=== PATIENT | female | born 1980 | race Asian ===

== ENCOUNTER 2022-01-14 08:34 | Emergency (ER) | payer OTHER, SELFPAY ==
--- NOTE | 2022-01-14 08:41 | ED.SKABFB ---
HPI - Skin/Abscess/Foreign Bdy General Chief complaint: Allergic Reaction Stated complaint: hives all over Time Seen by Provider: 01/14/22 08:41 Source: patient and RN notes reviewed History of Present Illness HPI narrative: Patient is a 41-year-old female who presents the urgent care with complaints of itchy red hives all over the body. Patient states that she broke out about 28 hours ago while she was at work. 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 Patient denies any new medications or products at work. Denies of any change in lotions, creams or detergents. Denies of any new foods. Patient states that when she ate yesterday was brought from home. No other acute complaints. Patient has been taking Berta, Zyrtec and Benadryl without much relief. No acute distress noted. Patient aware of the plan of care. Some parts of this dictation were generated by voice recognition software and may contain typographical and/or grammatical inaccuracies. Related Data Home Medications Medication Instructions Recorded Confirmed cetirizine 10 mg tablet (Zyrtec) 10 mg PO DAILY 03/28/21 01/14/22 Allergies Allergy/AdvReac Type Severity Reaction Status Date / Time No Known Allergies Allergy Mild Verified 01/14/22 08:54 Review of Systems Review of Systems: CONSTITUTIONAL: Denies fever, chills, or sweats. EYES: Denies visual changes, redness, or discharge. ENT: Denies rhinorrhea, congestion, sore throat, or otalgia. CARDIOVASCULAR: Denies chest pain, palpitations, or edema. RESPIRATORY: Denies cough or dyspnea. GASTROINTESTINAL: Denies abdominal pain, nausea, vomiting, or diarrhea. GENITOURINARY: Denies dysuria or hematuria. SKIN: Reports of diffuse itchy hives MUSCULOSKELETAL: Denies back pain, joint pain, or myalgia. NEUROLOGIC: Denies headache, numbness, or weakness. All other systems reviewed are negative, except as documented in HPI. [facility] Family History Family History (Updated 03/28/21 @ 11:38 by Ginette Treviño CMA) Father Hypertension Grandparent Cancer Social History Social History (Updated 03/28/21 @ 11:39 by Ginette Treviño CMA) Smoking status: Never smoker Second hand tobacco smoke exposure: No Alcohol intake: never Substance use type: does not use Gender identity (if verbalized by the patient): Female Spiritual care concerns: No Agree to blood products: Yes Comments At the time of my signature, I reviewed and agree with the nursing past medical, surgical, social, and family history. There is no relevant family history pertinent to the patient complaint. Exam Narrative: GENERAL: This is a well-nourished, well-developed patient, in no apparent distress. HEAD: normocephalic, atraumatic. EYES: PERRL. Sclera clear/white. Vision is grossly intact. EARS: External ears normal NOSE: External nose normal with no obvious nasal discharge, nares without redness, no rhinorrhea. THROAT: Mucous membranes moist, posterior pharynx clear. NECK: Neck supple, non-tender without lymphadenopathy CARDIOVASCULAR: Regular rate and rhythm without murmurs, gallops, or rubs. RESPIRATORY: Clear to auscultation. Breath sounds equal bilaterally. No wheezes, rales, or rhonchi. SKIN: Diffuse raised, blanching erythemic urticaria to trunk, bilateral upper and lower extremities NEURO: awake, alert, and oriented to person, place and time. There were no obvious focal neurologic abnormalities. EXTREMITIES: No clubbing, cyanosis, or edema. Course Course Level of Care: Express Care Visit Vital Signs Vital signs: Vital Signs Temperature 99.8 F H 01/14/22 08:46 Pulse Rate 88 01/14/22 08:46 Respiratory Rate 16 01/14/22 08:46 Blood Pressure 125/82 01/14/22 08:46 Pulse Oximetry 99 01/14/22 08:46 Oxygen Delivery Room Air 01/14/22 08:46 Temperature 99.8 F H 01/14/22 08:46 Pulse Rate 88 01/14/22 08:46 Respiratory Rate 16 01/14/22 08:46 Blood Pressure 125/82 01/14/22 08:46 Pulse Oximetr
[2022-01-14 08:46] VITALS: BP 125/82; PULSE 88; RESP 16; TEMP 37.7; O2SAT 99
== END 2022-01-14 09:05 | disposition home or self-care (01) ==
PROVIDERS: Emergency Provider Nurse Practitioner Family; PCP Family Medicine
DX: L50.9 Urticaria, unspecified (principal)
CPT/HCPCS: 99213; G0463